=== PATIENT | male | born 1990 | race Caucasian/White ===

== ENCOUNTER 2016-08-26 23:57 | Emergency (ER) | payer BC ==
--- NOTE | ~2016-08-26 | ER ---
PATIENT'S NAME: [facility] AGE: 26 Y [address] ROOM: [place] [address] LOCATION: [facility] ADMIT DATE: 08/26/2016 ER/Outpatient Report DISCHARGE DATE: 08/27/2016 FAMILY PHYSICIAN: PHYSICIAN, NO ATTENDING PHYSICIAN: Dipti Langford HISTORY OF PRESENT ILLNESS: This is a 26-year-old male, who presents with right flank and right lower quadrant pain that woke him up from sleep just prior to coming in, associated with nausea, but no vomiting. No fever or chills. The patient said the pain was 10/10 and crippling when it first woke him up and sharp. He says it is sort of down now. He did not take anything for pain. He does not want anything at this time. No urinary symptoms. He says he felt like his bladder was full at home after he woke up and had this pain, so he urinated, but that did not resolve the pain, so that is why he came into the ER. He says it feels kind of like gas too. PAST MEDICAL HISTORY: Includes depression and anxiety. PAST SURGICAL HISTORY: Pilonidal cyst removal x2. SOCIAL HISTORY: He does not smoke or use any drugs, but he uses occasional alcohol. MEDICATIONS: Please see med list. ALLERGIES: PLEASE SEE MED LIST. REVIEW OF SYSTEMS: Reviewed by me and negative with the exception of those discussed in the HPI. PHYSICAL EXAMINATION: VITAL SIGNS: The patient is 5 feet and 10 inches. He weighs 92.8 kilos. Blood pressure 146/85, heart rate 60, respiratory rate is 16, temperature is 96.4, and saturating 99% on room air. GENERAL: The patient looks pretty comfortable, just lying in stretcher, not actively writhing in pain, not retching, lying comfortably in bed. Alert and oriented x4. GCS is 15. LUNGS: No respiratory distress. Normal breath sounds. Heart rate is regular rate and rhythm. Lung sounds are clear. ABDOMEN: Soft. He has no right lower quadrant tenderness at all. No right PATIENT'S NAME: [facility] AGE: 26 Y [address] ROOM: [place] [address] LOCATION: [facility] ADMIT DATE: 08/26/2016 ER/Outpatient Report DISCHARGE DATE: 08/27/2016 FAMILY PHYSICIAN: PHYSICIAN, NO ATTENDING PHYSICIAN: Dipti Langford upper quadrant tenderness. Negative Renteria's. No suprapubic tenderness. No left lower quadrant tenderness. No CVA tenderness bilaterally. SKIN: Warm, dry and intact. No rash. EMERGENCY DEPARTMENT COURSE: I ordered a urine, but the patient was unable to give a urine sample at this time because he just urinated before coming in. Given his history, concern would be for a kidney stone, so, we did a CT of abdomen and pelvis noncontrast. There is a 1 mm nonobstructive right-sided kidney stone inside the kidney. No hydroureter or hydronephrosis though. He does have a stone within the dependent portion of the urinary bladder measuring about 4 mm likely representing a recently passed stone. Discussed this with the patient. He says he has not done anything whatsoever and now he does not want anything for pain and also does not wait to give a urinary sample given that he does not have any obstructive stones. I think he will be okay. He does not have any urinary symptoms as well. I asked him that he follow with his primary care doctor and he understands the reasons to come back to the ER sooner. IMPRESSION: Kidney stone, passed. DIPTI LANGFORD MD CAW/modl /[id number] d: 08/27/16 0358 t: 08/28/16 0030, OUTPATIENT REPORT
== END 2016-08-27 01:28 | disposition disaster alternative care site (69) ==
LOC: GMED 23:57
DX: N20.0 Calculus of kidney (principal); F41.9 Anxiety disorder, unspecified; F32.9 Major depressive disorder, single episode, unspecified